=== PATIENT | female | born 1940 | race Caucasian/White ===

== ENCOUNTER 2018-10-18 09:53 | Outpatient (CLI) | payer MEDICARE, OTHER ==
--- NOTE | 2018-10-23 15:03 | OP Clinic Progress Note ---
SUBJECTIVE: Alesia Lai is an 78-year-old female who presents to the clinic with her caregiver, Parisa, who also brought a consent form that authorizes consent for anything we would do today. The patient presents with a painful and slightly loose large left great toenail. The patient has been having discomfort and it has been obvious where she is living and we have elected from a previous visit together to go ahead and remove the great toenail permanently. The patient is pretty much nonverbal and most of our conversation was had through the patients caregiver. OBJECTIVE: Vitals: Temperature 97.6 degrees Fahrenheit, heart rate 96, respiration rate 18, blood pressure 138/67. Vascular: 2+ DP and PT pulses, left foot. Capillary refill time is less than 3 seconds to the toes of the left foot. There is no edema in the left foot. Dermatologic: There is a thick discolored left great toenail. This is partially loose. There is no erythema, no open lesions and no other skin lesions noted. Musculoskeletal: There is slight pain on palpation noted with motion of the left great toenail. There are no other gross abnormalities noted, left foot. We are unable to assess muscle strength about the ankle and subtalar joint, left. Neurologic: Light touch sensation is intact, left foot. Psychiatric: Mental status: Other (mental retardation). ASSESSMENT AND PLAN: 1. Left first toe onychomycosis; B35.1. 2. Left first toe onycholysis; L60.9. 3. Mental retardation; F79. The risks and benefits of a procedure to remove the great toenail permanently was had with the patient and caregiver, Parisa, that include but are not limited to bleeding and infection, and the caregiver has consented to go forward with the total nail avulsion of the left great toenail with chemical matrixectomy. They understand that there will be a longer healing period with this. We will follow her closely. She seems to have good blood flow and I dont believe there will be any concerns there. PROCEDURE #1: Total nail avulsion of the left great toenail with chemical matrixectomy. An alcohol swab was used to cleanse the base of the left great toe. The left great toe was injected with 6 mL of a 1:1 mix of 2% lidocaine plain and 0.5% Marcaine plain. After anesthesia was obtained, the toe was prepped with Betadine. At this time the left great toenail was avulsed in its entirety and checked to make sure all the toenail was gone, which it was. At this time the site was rinsed with a copious amount of normal saline. The nail bed was clear and free of any abrasions or concerning areas. At this time phenol was utilized in increments of 45 seconds, 30 seconds and 30 seconds for a total of 3 applications for chemical matrixectomy. At this time it should be noted that antibiotic ointment was applied around the toe and on the second toe adjacent to protect it from any of the acids so that none would get on the adjacent skin. At this time the site was flushed with a copious amount of 70% isopropyl alcohol. The site was then dried and dressed with triple antibiotic ointment, 4x4 gauze, 2-inch Chel and 1-inch Coban beginning on the toe and extending onto the distal forefoot. It should be noted that the mid toe was exsanguinated at the beginning of the procedure and a toe tourniquet was applied which was removed at the end of the procedure just prior to final rinsing with 70% isopropyl alcohol. The patient tolerated the procedure well. Hemostasis was obtained with pressure prior to dressing application. Instructions regarding postprocedure care of the toe was given and discussed in written form and verbally. The patient and the caregiver were appreciative and had no other concerns or questions at this time. Return to the clinic in 1 week for follow-up and then we will see her 2 weeks after that for a final follow-up as long as things have healed well. The patient and the caregiver know that she will have dressing changes once to twice daily for the next week until I see her again due to increased drainage. Ivett CaballeroPKanika. (Dictated/Not Signed) Zackery Job#: [id number] SHELLY
--- NOTE | 2018-10-29 18:31 | OP Clinic Progress Note ---
SUBJECTIVE: Alesia Lai is an 78-year-old female who presents today for follow-up of left great toenail total nail avulsion with chemical matrixectomy. The caregiver states that she is not sure what they have been doing for treatment but they were supposed to have been doing antibiotic ointment and a Band-Aid daily. The patient is not able to really communicate well and it is difficult to get any questions answered. The patient seems to be doing well, however. There is no reported complications today. OBJECTIVE: Vitals: Temperature 97.7 degrees Fahrenheit, heart rate 102, respiration rate 16, blood pressure 125/74. Oxygen saturation 93% on room air. Vascular: 2+ DP and PT pulses, left foot. Capillary refill time is less than 3 seconds to the toes of the left foot. There is no edema noted to the left foot. Dermatologic: The left great toenail bed is appearing to start drying out appropriately. There is a mild amount of white perhaps yellow slough in the corners which was attempted to debride today without much success. Overall, it is looking quite dry and looking good so far. There is very mild irritation on the proximal eponychium area as well as at the medial injection site where a small superficial blister has now appeared to have shown up and is dry with a very superficial lesion that is healing. This also has mild red irritation. There is no warmth, purulence or any malodor that is concerning of infection at the left great toe at all at this time. Musculoskeletal: There is perhaps mild pain on palpation with efforts to do a small debridement. The patient has no other abnormalities noted. Neurologic: Light touch sensation is intact to the left foot. Psychiatric: Mental status: Other (mental retardation). ASSESSMENT AND PLAN: 1. Left hallux post procedure follow-up. 2. Onychomycosis, left hallux nail previously. 3. Mental retardation. An attempt was made of a small light debridement with a #15 blade but I am not counting this as a procedure as I was unable to really debride anything today. Triple antibiotic ointment and a Band-Aid was applied to the nail bed as well as the superficial dry blister at the medial injection site of the left great toe base. A bandage was applied over the top of the antibiotic ointment. The patient and the caregiver were instructed both verbally and by written instructions and the note sent home with them to apply antibiotic ointment and a Band-Aid for 1 week to both sites on the left great toe and then to follow with a week of only a Band-Aid. The patient will return to the clinic in 2 weeks on a Monday for follow-up to make sure it has healed completely at that time. The patient has no further questions, nor the caregiver. We will see her in 2 weeks. Ivett CaballeroP.M. (Dictated/Not Signed) Zackery Job#: [id number] MTDD
== END 2018-10-18 09:55 ==
LOC: POD 09:53
PROVIDERS: ATTEND Podiatrist Foot & Ankle Surgery
DX: L60.0 Ingrowing nail (principal); B35.1 Tinea unguium; F79 Unspecified intellectual disabilities
CPT/HCPCS: 11750; J2001; J3490; A4554

== ENCOUNTER 2018-10-25 10:08 | Outpatient (CLI) | payer MEDICARE, OTHER ==
--- NOTE | 2018-11-01 10:34 | OP Clinic Progress Note ---
SUBJECTIVE: Alesia Lai is an 78-year-old female who presents today for follow-up of left great toenail total nail avulsion with chemical matrixectomy. The caregiver states that she is not sure what they have been doing for treatment but they were supposed to have been doing antibiotic ointment and a Band-Aid daily. The patient is not able to really communicate well and it is difficult to get any questions answered. The patient seems to be doing well, however. There is no reported complications today. OBJECTIVE: Vitals: Temperature 97.7 degrees Fahrenheit, heart rate 102, respiration rate 16, blood pressure 125/74. Oxygen saturation 93% on room air. Vascular: 2+ DP and PT pulses, left foot. Capillary refill time is less than 3 seconds to the toes of the left foot. There is no edema noted to the left foot. Dermatologic: The left great toenail bed is appearing to start drying out appropriately. There is a mild amount of white perhaps yellow slough in the corners which was attempted to debride today without much success. Overall, it is looking quite dry and looking good so far. There is very mild irritation on the proximal eponychium area as well as at the medial injection site where a small superficial blister has now appeared to have shown up and is dry with a very superficial lesion that is healing. This also has mild red irritation. There is no warmth, purulence or any malodor that is concerning of infection at the left great toe at all at this time. Musculoskeletal: There is perhaps mild pain on palpation with efforts to do a small debridement. The patient has no other abnormalities noted. Neurologic: Light touch sensation is intact to the left foot. Psychiatric: Mental status: Other (mental retardation). ASSESSMENT AND PLAN: 1. Left hallux post procedure follow-up. 2. Onychomycosis, left hallux nail previously. 3. Mental retardation. An attempt was made of a small light debridement with a #15 blade but I am not counting this as a procedure as I was unable to really debride anything today. Triple antibiotic ointment and a Band-Aid was applied to the nail bed as well as the superficial dry blister at the medial injection site of the left great toe base. A bandage was applied over the top of the antibiotic ointment. The patient and the caregiver were instructed both verbally and by written instructions and the note sent home with them to apply antibiotic ointment and a Band-Aid for 1 week to both sites on the left great toe and then to follow with a week of only a Band-Aid. The patient will return to the clinic in 2 weeks on a Monday for follow-up to make sure it has healed completely at that time. The patient has no further questions, nor the caregiver. We will see her in 2 weeks. Ivett CaballeroP.M. (Dictated/Not Signed) Zackery Job#: [id number] MTDD
== END 2018-10-25 10:10 ==
LOC: POD 10:08
PROVIDERS: ATTEND Podiatrist Foot & Ankle Surgery
DX: Z09 Encounter for follow-up examination after completed treatment for conditions other than malignant neoplasm (principal); L60.0 Ingrowing nail
CPT/HCPCS: A4554

== ENCOUNTER 2018-11-09 10:29 | Outpatient (CLI) | payer MEDICARE, OTHER ==
--- NOTE | 2018-11-13 15:02 | OP Clinic Progress Note ---
SUBJECTIVE: Alesia Lai is an 78-year-old female who presents with her caregiver today for follow-up of her left great toenail total nail avulsion with chemical matrixectomy. The patient followed instructions with her caregivers help with a Band-Aid and antibiotic ointment daily for 7 days followed by just a Band-Aid for 7 days and presents today with very slight red discoloration at the eponychium area. This is very mild and is not warm or concerning. The patient does not admit to any fevers, chills, nausea, vomiting, shortness of breath or chest pain at this time. There are no other reported complications today. OBJECTIVE: Vitals: Temperature 97.0 degrees Fahrenheit, heart rate 92, respiration rate 15, blood pressure 137/73. Oxygen saturation 95% on room air. Vascular: 2+ DP and PT pulses, left foot. Capillary refill time is less than 3 seconds to the toes of the left foot. There is no edema noted to the left foot. Dermatologic: The left great toenail bed is with a very stable eschar, however, it is slightly soft on the proximal lateral end. This was debrided back slightly to reveal a yellow necrotic fluid which was expressed appropriately. There was no purulence or malodor noted. The very mild red discoloration of the eponychium is just likely due to appropriate healing underneath the scab. There are no concerning signs of infection at this time. Musculoskeletal: There is perhaps mild pain on palpation noted with efforts to drain that little bit of fluid from the toe. Neurologic: Light touch sensation is intact to the left foot. ASSESSMENT AND PLAN: 1. Left hallux post procedure follow-up. 2. Onychocryptosis, left hallux nail previously. 3. Mental retardation. A #15 blade was used to slightly debride back the proximal lateral border of the left great toenail where it was soft and fluid was expressed. There was no purulence, however, I believe it was just necrotic fluid from sitting underneath the scab. This was then dressed with triple antibiotic ointment and a Band-Aid. Instructions were given to the caregiver verbally as well as with written instructions to repeat what we did last time with 7 days of antibiotic ointment and a Band-Aid followed by 7 days of just a Band-Aid. We will see the patient in approximately 2 weeks from yesterday for follow-up to make sure it is completely healed at that time. There were no other concerns or questions and we will see the patient in 2 weeks. Ivett CaballeroPMely (Dictated/Not Signed) Zackery Job #: [id number] MTDD
== END 2018-11-09 10:50 ==
LOC: POD 10:29
PROVIDERS: ATTEND Podiatrist Foot & Ankle Surgery
DX: Z98.890 Other specified postprocedural states (principal); L60.0 Ingrowing nail
CPT/HCPCS: A4554

== ENCOUNTER 2018-11-29 09:37 | Outpatient (CLI) | payer MEDICARE, OTHER ==
--- NOTE | 2018-12-04 14:51 | OP Clinic Progress Note ---
SUBJECTIVE: Alesia Lai is an 78-year-old female presenting with her caregiver today for follow-up of a left great toenail total nail avulsion with chemical matrixectomy. This is her second follow-up. She has been doing 7 more days of antibiotic ointment and a Band-Aid followed by 7 days with just a Band- Aid essentially. The patients caregiver states that it is seeming to have healed well and is looking great. She denies any complaints or concerns. OBJECTIVE: Vitals: Temperature 98.9 degrees Fahrenheit, heart rate 89, respiration rate 16, blood pressure 127/66. Oxygen saturation 95% on room air. Vascular: 2+ DP and PT pulses, left foot. Capillary refill time is less than 3 seconds to the toes of the left foot. There is no edema noted to the left foot. Dermatologic: The left great toenail bed is with a very stable dry eschar. There is no raw tissue or soft tissue noted of concern at this time. There is no erythema, purulence or malodor of any kind noted. There is a hyperkeratotic lesion noted under the first metatarsal head of the left foot. This was debrided to intact skin today without incident. Musculoskeletal: There is mild pain on palpation noted at the callus site sub first metatarsal head, left foot. There is no other pain on palpation noted about the foot or the great toe, left foot. Neurologic: Light touch sensation is intact to the left foot. ASSESSMENT AND PLAN: 1. Onychocryptosis, left hallux nail previous. 2. Status post procedure for left hallux total nail avulsion with chemical matrixectomy. 3. Mental retardation. 4. Hyperkeratosis, sub first metatarsal head, left foot. PROCEDURE #1: Debridement of hyperkeratosis with #15 blade to intact skin. The patient tolerated the procedure well. The patient will continue using diabetic shoe inserts which are fairly recent, I believe, for her. As she uses that we will have her come in if that callus returns and if she has any further complaints or concerns. The patient is not needing to do Band-Aids or anything at this time and that small stable scab should wear off on the left great toenail bed on its own. The caregiver has no other concerns or questions at this time and the patient is doing great. She will return to the clinic only as needed for callus follow-up, callus care or any other issues that may come up. There were no other concerns or questions and we will see the patient in 2 weeks. Cruzito Verde D.P.M. (Dictated/Not Signed) Zackery Job#: [id number] MTDD
== END 2018-11-29 09:40 ==
LOC: POD 09:37
PROVIDERS: ATTEND Podiatrist Foot & Ankle Surgery
DX: F79 Unspecified intellectual disabilities (principal); Z98.890 Other specified postprocedural states; L85.1 Acquired keratosis [keratoderma] palmaris et plantaris; L60.0 Ingrowing nail
CPT/HCPCS: 11055; 99212; A4554